=== PATIENT | female | born 1945 | race Caucasian/White ===

== ENCOUNTER 2020-10-26 14:49 | Outpatient (REF) | payer MEDICARE, SELFPAY | END 2020-10-26 14:50 | disposition home or self-care (01) | LOC: HO.HMGCLDS 14:49 | PROVIDERS: Visit Provider Internal Medicine | DX: Z20.828 Contact with and (suspected) exposure to other viral communicable diseases (principal) | CPT/HCPCS: C9803; U0003 ==

== ENCOUNTER 2021-11-24 07:04 | Outpatient (REF) | payer MEDICARE, SELFPAY | END 2021-11-24 07:05 | disposition home or self-care (01) | LOC: HO.HMGCLDS 07:04 | PROVIDERS: Visit Provider Internal Medicine | DX: Z20.822 Contact with and (suspected) exposure to COVID-19 (principal) | CPT/HCPCS: C9803; U0003; U0005 ==